=== PATIENT | female | born 1980 | race Caucasian/White ===

== ENCOUNTER 2017-03-28 03:16 | Emergency (ER) | payer SELFPAY | END 2017-03-28 04:01 | disposition home or self-care (01) | LOC: D.ER 03:16 | DX: L03.116 Cellulitis of left lower limb (principal) ==

== ENCOUNTER → 2018-05-05 19:35 | Outpatient (CLI) | payer MEDICAID ==
[2018-05-05 21:30] LABS: ERYTHROCYTE SEDIMENTATION RATE 5 mm/hr (0-20)
[2018-05-07 18:08] LABS: ANA REFLEX - DIRECT Negative (Negative)
== END | disposition home or self-care (01) ==
LOC: D.LABREF 19:35
PROVIDERS: ATTEND Family Medicine
DX: M79.609 Pain in unspecified limb (principal); F19.10 Other psychoactive substance abuse, uncomplicated; F17.200 Nicotine dependence, unspecified, uncomplicated

== ENCOUNTER 2019-09-20 23:34 | Emergency (ER) | payer MEDICAID ==
[~2019-09-20] VITALS: Ht 170.2 cm; Wt 63.6 kg
[2019-09-20 23:59] VITALS: Ht 170.2 cm; Wt 63.6 kg
[2019-09-21 03:07] VITALS: BP 124/77
== END 2019-09-21 03:08 | disposition home or self-care (01) ==
LOC: D.ER 23:34
DX: J02.0 Streptococcal pharyngitis (principal); Z72.0 Tobacco use